=== PATIENT | male | born 1970 | race Caucasian/White ===

== ENCOUNTER 2019-09-16 09:40 | Outpatient (CLI) | payer BC, SELFPAY ==
[2019-09-16 10:13] LABS: Basophils Percent Auto 0.5 % (0.2-1.2); Eosinophils Percent Auto 0.8 % (0-4.4); Hematocrit 45.7 % (42.0-52.0); Hemoglobin 15.9 g/dL (14.0-18.0); Immature Granulocyte Absolute 0.01 K/mm3 (0.00-0.031); Immature Granulocyte Percent A 0.3 % (0-0.5); Lymphocytes Absolute Auto 0.73 K/mm3 (0.9-3.2); Lymphocytes Percent Auto 19.3 % (18.3-44.2); Mean Corpuscular HGB Conc 34.8 g/dl (32-36); Mean Corpuscular Hemoglobin 32.6 pg (26-34); Mean Corpuscular Volume 93.8 fl (80-100); Mean Platelet Volume 11.2 fl (7.4-10.4); Monocytes Absolute Auto 0.4 K/mm3 (0.1-0.6); Monocytes Percent Auto 10.8 % (2.6-8.5); Neutrophils Absolute Auto 2.6 K/mm3 (1.3-6.7); Neutrophils Percent Auto 68.3 % (45.5-73.1); Platelet Count Result 184 k/mm3 (150-375); Red Blood Count 4.87 M/mm3 (4.6-6.20); Red Cell Distribution Width 12.5 % (11.5-14.5); White Blood Count 3.8 K/mm3 (4.5-10.0)
[2019-09-16 10:39] LABS: Alanine Aminotransferase 71 U/L (4-50); Albumin Level 4.7 g/dL (3.5-5.1); Alkaline Phosphatase 35 U/L (38-126); Aspartate Amino Transferase 51 U/L (17-59); Bilirubin,Total 1.1 mg/dL (0.2-1.3); Blood Urea Nitrogen 16 mg/dL (9-20); Calcium 9.5 mg/dL (8.4-10.2); Carbon Dioxide 26 mmol/L (22-30); Chloride 105 mmol/L (98-107); Cholesterol 229 mg/dL (0-200); Estimated Glomerular Filt Rate > 60; Glucose 123 mg/dL (75-110); HDL Direct 46 mg/dL; Potassium 4.4 mmol/L (3.4-5.0); Sodium 139 mmol/L (137-145); Triglycerides 110 mg/dL (<150)
[2019-09-16 10:51] LABS: LDL Cholesterol Direct 156 mg/dL
[2019-09-16 11:07] LABS: Free T4 Free Thyroxine 0.83 ng/mL (0.78-2.19)
[2019-09-16 11:15] LABS: Total Triiodothyronine (T3) 1.05 NG/ML (0.97-1.69)
== END 2019-09-16 09:41 | disposition home or self-care (01) ==
PROVIDERS: PCP Family Medicine; Visit Provider Nurse Practitioner Family
DX: Z00.00 Encounter for general adult medical examination without abnormal findings (principal); Z13.0 Encounter for screening for diseases of the blood and blood-forming organs and certain disorders involving the immune mechanism; Z13.6 Encounter for screening for cardiovascular disorders; Z13.220 Encounter for screening for lipoid disorders; R53.83 Other fatigue; E55.9 Vitamin D deficiency, unspecified
CPT/HCPCS: 36415; 80053; 80061; 82306; 84439; 84443; 84480; 85025

== ENCOUNTER 2020-10-06 11:07 | Outpatient (CLI) | payer BC, SELFPAY ==
[2020-10-06 11:40] LABS: Basophils Percent Auto 0.8 % (0.2-1.2); Eosinophils Percent Auto 0.8 % (0-4.4); Hematocrit 41.7 % (42.0-52.0); Hemoglobin 14.9 g/dL (14.0-18.0); Immature Granulocyte Absolute 0.01 K/mm3 (0.00-0.031); Immature Granulocyte Percent A 0.4 % (0-0.5); Lymphocytes Absolute Auto 0.54 K/mm3 (0.9-3.2); Lymphocytes Percent Auto 22.4 % (18.3-44.2); Mean Corpuscular HGB Conc 35.7 g/dl (32-36); Mean Corpuscular Hemoglobin 33.7 pg (26-34); Mean Corpuscular Volume 94.3 fl (80-100); Mean Platelet Volume 11.1 fl (7.4-10.4); Monocytes Absolute Auto 0.3 K/mm3 (0.1-0.6); Monocytes Percent Auto 11.6 % (2.6-8.5); Neutrophils Absolute Auto 1.5 K/mm3 (1.3-6.7); Platelet Count Result 170 k/mm3 (150-375); Red Blood Count 4.42 M/mm3 (4.6-6.20); White Blood Count 2.4 K/mm3 (4.5-10.0)
[2020-10-06 12:23] LABS: Creatinine Urine 335.6 mg/dL
[2020-10-06 12:26] LABS: MALB Creatinine Ratio 10.3 mg/g (0-30); Microalbumin Urine Random 34.6 mg/L (0-16.7)
[2020-10-06 12:37] LABS: Free T4 Free Thyroxine 0.97 ng/mL (0.78-2.19); Vitamin D 25 Hydroxy 45.7 ng/mL
[2020-10-06 13:20] LABS: Alanine Aminotransferase 76 U/L (4-50); Albumin Level 4.6 g/dL (3.5-5.1); Alkaline Phosphatase 32 U/L (38-126); Anion Gap 9 mmol/L (8-16); Aspartate Amino Transferase 42 U/L (17-59); Bilirubin,Total 0.9 mg/dL (0.2-1.3); Blood Urea Nitrogen 17 mg/dL (9-20); Calcium 9.8 mg/dL (8.4-10.2); Carbon Dioxide 25 mmol/L (22-30); Chloride 106 mmol/L (98-107); Cholesterol 212 mg/dL (0-200); Estimated Glomerular Filt Rate > 60; Glucose 109 mg/dL (75-110); HDL Direct 46 mg/dL; Potassium 4.4 mmol/L (3.4-5.0); Sodium 140 mmol/L (137-145); Triglycerides 117 mg/dL (<150)
[2020-10-06 13:31] LABS: LDL Cholesterol Direct 124 mg/dL
[2020-10-06 13:51] LABS: Total Triiodothyronine (T3) 1.33 NG/ML (0.97-1.69)
== END 2020-10-06 11:08 | disposition home or self-care (01) ==
PROVIDERS: PCP Family Medicine; Visit Provider Nurse Practitioner
DX: Z00.00 Encounter for general adult medical examination without abnormal findings (principal); R03.0 Elevated blood-pressure reading, without diagnosis of hypertension; M54.2 Cervicalgia; E55.9 Vitamin D deficiency, unspecified; R80.9 Proteinuria, unspecified
CPT/HCPCS: 36415; 80053; 80061; 82043; 82306; 84439; 84443; 84480; 85025

== ENCOUNTER 2020-10-19 14:53 | Outpatient (CLI) | payer BC, SELFPAY ==
[2020-10-19 20:25] LABS: Alanine Aminotransferase 51 U/L (4-50); Albumin Level 4.5 g/dL (3.5-5.1); Alkaline Phosphatase 35 U/L (38-126); Anion Gap 9 mmol/L (8-16); Aspartate Amino Transferase 39 U/L (17-59); Bilirubin,Total 0.7 mg/dL (0.2-1.3); Blood Urea Nitrogen 20 mg/dL (9-20); Calcium 9.6 mg/dL (8.4-10.2); Carbon Dioxide 24 mmol/L (22-30); Chloride 105 mmol/L (98-107); Estimated Glomerular Filt Rate > 60; Glucose 153 mg/dL (75-110); Potassium 4.2 mmol/L (3.4-5.0); Sodium 138 mmol/L (137-145)
[2020-10-19 20:56] LABS: Hepatitis B Surface Antigen Negative (Negative)
[2020-10-19 21:02] LABS: HAV RESULT Negative (Negative); Hepatitis B Core IgM Result Negative (Negative)
[2020-10-19 21:14] LABS: Hepatitis C Virus Antibody Negative (Negative)
== END 2020-10-19 14:54 | disposition home or self-care (01) ==
PROVIDERS: PCP Family Medicine; Visit Provider Nurse Practitioner
DX: R74.8 Abnormal levels of other serum enzymes (principal)
CPT/HCPCS: 36415; 80053; 80074

== ENCOUNTER 2021-04-20 11:00 | Outpatient (CLI) | payer BC, SELFPAY ==
[2021-04-20 11:18] LABS: Basophils Percent Auto 1.3 % (0.2-1.2); Eosinophils Percent Auto 1.3 % (0-4.4); Hematocrit 41.5 % (42.0-52.0); Hemoglobin 14.8 g/dL (14.0-18.0); Immature Granulocyte Absolute 0.01 K/mm3 (0.00-0.031); Immature Granulocyte Percent A 0.3 % (0-0.5); Lymphocytes Absolute Auto 0.86 K/mm3 (0.9-3.2); Lymphocytes Percent Auto 27.3 % (18.3-44.2); Mean Corpuscular HGB Conc 35.7 g/dl (32-36); Mean Corpuscular Hemoglobin 35.3 pg (26-34); Mean Platelet Volume 10.6 fl (7.4-10.4); Monocytes Absolute Auto 0.4 K/mm3 (0.1-0.6); Neutrophils Absolute Auto 1.8 K/mm3 (1.3-6.7); Neutrophils Percent Auto 56.8 % (45.5-73.1); Platelet Count Result 179 k/mm3 (150-375); Red Blood Count 4.19 M/mm3 (4.6-6.20); Red Cell Distribution Width 12.7 % (11.5-14.5); White Blood Count 3.2 K/mm3 (4.5-10.0)
[2021-04-20 11:29] LABS: Alanine Aminotransferase 54 U/L (4-50); Albumin Level 4.6 g/dL (3.5-5.1); Alkaline Phosphatase 34 U/L (38-126); Anion Gap 7 mmol/L (8-16); Aspartate Amino Transferase 34 U/L (17-59); Bilirubin,Total 0.8 mg/dL (0.2-1.3); Blood Urea Nitrogen 16 mg/dL (9-20); Calcium 9.3 mg/dL (8.4-10.2); Carbon Dioxide 28 mmol/L (22-30); Chloride 104 mmol/L (98-107); Cholesterol 203 mg/dL (0-200); Estimated Glomerular Filt Rate > 60; Glucose 126 mg/dL (65-110); HDL Direct 51 mg/dL; Potassium 4.4 mmol/L (3.4-5.0); Sodium 139 mmol/L (137-145); Triglycerides 101 mg/dL (<150)
[2021-04-20 11:40] LABS: LDL Cholesterol Direct 123 mg/dL
[2021-04-20 11:59] LABS: Prostate Specific Antigen 0.3 ng/mL (< OR = 4.0); Total Triiodothyronine (T3) 1.06 NG/ML (0.97-1.69)
[2021-04-20 12:22] LABS: Vitamin D 25 Hydroxy 41.5 ng/mL
[2021-04-24 20:35] LABS: Triiodothyronine T3 Free 3.4 pg/mL (2.3-4.2)
== END 2021-04-20 11:01 | disposition home or self-care (01) ==
PROVIDERS: PCP Family Medicine; Visit Provider Family Medicine
DX: E78.5 Hyperlipidemia, unspecified (principal)
CPT/HCPCS: 36415; 80053; 80061; 82306; 84153; 84443; 84480; 84481; 85025; G0103

== ENCOUNTER 2021-10-12 10:56 | Outpatient (CLI) | payer BC, SELFPAY ==
[2021-10-12 11:30] LABS: Basophils Percent Auto 1.1 % (0.2-1.2); Eosinophils Absolute Auto 0.1 K/mm3 (0-0.3); Eosinophils Percent Auto 1.8 % (0-4.4); Hematocrit 44.2 % (42.0-52.0); Hemoglobin 15.8 g/dL (14.0-18.0); Immature Granulocyte Absolute 0.01 K/mm3 (0.00-0.031); Immature Granulocyte Percent A 0.4 % (0-0.5); Lymphocytes Absolute Auto 0.71 K/mm3 (0.9-3.2); Lymphocytes Percent Auto 25.9 % (18.3-44.2); Mean Corpuscular HGB Conc 35.7 g/dl (32-36); Mean Corpuscular Volume 97.8 fl (80-100); Mean Platelet Volume 10.5 fl (7.4-10.4); Monocytes Absolute Auto 0.3 K/mm3 (0.1-0.6); Monocytes Percent Auto 12.4 % (2.6-8.5); Neutrophils Absolute Auto 1.6 K/mm3 (1.3-6.7); Neutrophils Percent Auto 58.4 % (45.5-73.1); Platelet Count Result 191 k/mm3 (150-375); Red Blood Count 4.52 M/mm3 (4.6-6.20); Red Cell Distribution Width 12.4 % (11.5-14.5); White Blood Count 2.7 K/mm3 (4.5-10.0)
[2021-10-12 11:38] LABS: Alanine Aminotransferase 53 U/L (6-50); Albumin Level 4.9 g/dL (3.5-5.1); Alkaline Phosphatase 34 U/L (38-126); Anion Gap 7 mmol/L (8-16); Aspartate Amino Transferase 34 U/L (17-59); Bilirubin,Total 0.8 mg/dL (0.2-1.3); Blood Urea Nitrogen 15 mg/dL (9-20); Calcium 9.2 mg/dL (8.4-10.2); Carbon Dioxide 30 mmol/L (22-30); Chloride 105 mmol/L (98-107); Cholesterol 220 mg/dL (0-200); Estimated Glomerular Filt Rate > 60; Glucose 124 mg/dL (65-110); HDL Direct 50 mg/dL; Potassium 4.6 mmol/L (3.4-5.0); Sodium 142 mmol/L (137-145); Triglycerides 94 mg/dL (<150)
[2021-10-12 11:49] LABS: LDL Cholesterol Direct 127 mg/dL
[2021-10-12 12:05] LABS: Free T4 Free Thyroxine 0.92 ng/mL (0.78-2.19)
[2021-10-12 12:07] LABS: Prostate Specific Antigen 0.3 ng/mL (< OR = 4.0); Total Triiodothyronine (T3) 1.05 NG/ML (0.97-1.69)
[2021-10-15 11:13] LABS: Sex Hormone Binding Globulin 42 nmol/L (10-50)
[2021-10-16 17:33] LABS: Testosterone Free 82.9 pg/mL (35.0-155.0); Testosterone Total 448 ng/dL (250-1100)
[2021-10-16 19:36] LABS: FSH 4.9 mIU/mL (1.6-8.0); LH 6.4 mIU/mL (1.5-9.3); Prolactin 9.3 ng/mL (***)
== END 2021-10-12 10:57 | disposition home or self-care (01) ==
LOC: ANHLAB 10:58
PROVIDERS: PCP Family Medicine; Visit Provider Family Medicine
DX: I10 Essential (primary) hypertension (principal); R53.83 Other fatigue; E78.5 Hyperlipidemia, unspecified; R53.1 Weakness; E55.9 Vitamin D deficiency, unspecified; Z12.5 Encounter for screening for malignant neoplasm of prostate
CPT/HCPCS: 36415; 80053; 80061; 82306; 83001; 83002; 84146; 84153; 84270; 84402; 84403; 84439; 84443; 84480; 85025; G0103

== ENCOUNTER 2022-11-19 16:49 | Outpatient (CLI) | payer BC, SELFPAY ==
--- NOTE | ~2022-11-19 | XR_ITS ---
Thoracic spine: Clinical Indication: Back pain AP and lateral views were performed. No fracture is seen. There is normal alignment of the vertebrae. The intervertebral disc spaces appe ar normal. Paravertebral soft tissues appear normal. Impression: No significant abnormalities noted. Reviewed, dictated and finalized at [facility]. Impression: No significant abnormalities noted.
--- NOTE | ~2022-11-19 | XR_ITS ---
Cervical Spine: AP, lateral, open-mouth views Clinical History: Pain Findings: The normal lordotic curve is maintained. The vertebral bodies and posterior elements appea r intact. The intervertebral disc spaces are well maintained. Pre-vertebral soft tissues are unremar kable. Impression: No significant abnormality is seen. Reviewed, dictated and finalized at [facility]. Impression: No significant abnormality is seen.
== END 2022-11-19 16:50 | disposition home or self-care (01) ==
PROVIDERS: PCP Family Medicine; Visit Provider Nurse Practitioner Adult Health
DX: M54.2 Cervicalgia (principal); M54.6 Pain in thoracic spine
CPT/HCPCS: 72050; 72070

== ENCOUNTER 2023-08-31 17:40 | Emergency (ER) | payer BC, SELFPAY ==
[2023-08-31 17:51] VITALS: BP 151/84; PULSE 85; RESP 18; TEMP 36.4; O2SAT 100
--- NOTE | 2023-08-31 18:09 | ED.EYEPROB ---
HPI - Eye Problem General Chief complaint: Eye Problems Stated complaint: rt eye pain Time Seen by Provider: 08/31/23 18:10 Source: patient Mode of arrival: ambulatory Limitations: no limitations History of Present Illness HPI Narrative: 53-year-old male presented for complaint of right eye pain since yesterday. He states the eye was ?irritated? yesterday after yard work but denies injury or foreign body. States he woke this morning with more pain, and has had clear tearing throughout the day. Endorses some light sensitivity. Was able to work today. Denies vision changes, foreign body sensation, purulent drainage, itching or swelling. Does not wear contact lenses. Attempted to flush with a bottle of water today. MD chief complaint: eye pain Related Data Home Medications Medication Instructions Recorded Confirmed azathioprine 50 mg tablet mg 08/31/23 oxycodone-acetaminophen 10 mg-325 tablet 08/31/23 mg tablet Allergies Allergy/AdvReac Type Severity Reaction Status Date / Time morphine Allergy Severe CHEST PAIN Verified 08/31/23 18:10 AND BURNING SENSATION OF CHEST NSAIDS (Non-Steroidal AdvReac Other Verified 08/31/23 18:10 Anti-Inflamma Review of Systems Review of Systems: CONSTITUTIONAL: Denies body aches, fever, chills EYES:Endorses pain, photophobia Denies visual changes swelling, redness and fb sensation ENT: Denies rhinorrhea, congestion, sore throat, or otalgia. CARDIOVASCULAR: Denies chest pain, palpitations RESPIRATORY: Denies cough or dyspnea. SKIN: Denies rash, itching, or wounds. MUSCULOSKELETAL: Denies back pain, joint pain, or myalgia. NEUROLOGIC: Denies headache. All systems reviewed & are unremarkable except as noted in HPI and below [facility] Past Medical History Medical History (Updated 08/31/23 @ 18:31 by Cori Del Rio APRN) Ulcerative colitis Comments At time of signature, I have reviewed and agree with nursing past medical, surgical, social and family history unless otherwise noted. Please see nursing chart for further information. There is no relevant family history pertinent to the presenting complaint Exam Narrative: GENERAL: Well-appearing HEAD: Normocephalic, atraumatic. EYES: Right conjunctival injection, frequent tearing.Shabazz lamp exam shows corneal abrasion at 8o'clock position over iris. No eye lid swelling or purulent drainage. PERRLA EOMI. Lid eversion shows no FB. ENT: Mucous membranes pink and moist. No rhinorrhea. SKIN: Warm, dry, no rash. Normal skin turgor. NEURO: No focal deficits. Alert and oriented x3 PSYCH: Normal affect. Eyes: Eyes/upper lids images: 1. area of corneal abrasion Course Course Emergency Course: Patient is aware of diagnosis, understands and agrees to treatment plan. Anticipatory guidance given. Patient agrees to follow-up as directed and is aware of reasons to seek care at the emergency department. Portions of this record may have been created with voice recognition software Level of Care: Express Care Visit Vital Signs Vital signs: Vital Signs Temperature 97.5 F L 08/31/23 17:51 Pulse Rate 85 08/31/23 17:51 Respiratory Rate 18 08/31/23 17:51 Blood Pressure 151/84 H 08/31/23 17:51 Pulse Oximetry 100 08/31/23 17:51 Oxygen Delivery Room Air 08/31/23 17:51 Temperature 97.5 F L 08/31/23 17:51 Pulse Rate 85 08/31/23 17:51 Respiratory Rate 18 08/31/23 17:51 Blood Pressure 151/84 H 08/31/23 17:51 Pulse Oximetry 100 08/31/23 17:51 Oxygen Delivery Room Air 08/31/23 17:51 Procedures FB Removal Eye Foreign Body #1: Location: eye (R) Topical anesthetic used: tetracaine Evidence of corneal penetration: Yes (corneal abrasion) Procedure performed under: other (shabazz lamp) Patient tolerated procedure: well and no complications Foreign Body Removal Narrative: Right Eye was anesthetized with 1 drop of
[2023-08-31] MEDS: FLUORESCEIN SOD 1 MG/STRIP AFFCTD EYE (18:20)
[2023-08-31] MEDS: DACRIOSE EYE IRRIGATION 118 ML BOTTLE RIGHT EYE (18:20)
[2023-08-31] MEDS: TETRACAINE HCL 0.5% OPHTH SOLN 4 ML BTL 1 DROP AFFCTD EYE (18:20)
== END 2023-08-31 18:38 | disposition home or self-care (01) ==
PROVIDERS: Emergency Provider Nurse Practitioner Family; PCP Nurse Practitioner Adult Health
DX: S05.01XA Injury of conjunctiva and corneal abrasion without foreign body, right eye, initial encounter (principal); X58.XXXA Exposure to other specified factors, initial encounter
CPT/HCPCS: 99213; A9270; G0463

== ENCOUNTER 2023-09-03 15:33 | Outpatient (CLI) | payer BC, SELFPAY ==
--- NOTE | ~2023-09-03 | XR_ITS ---
EXAMINATION: XR knee RT min 4V DATE: 09/03/2023 15:57 INDICATION: Right knee pain. TECHNIQUE: 4 views of right knee including standing views were obtained. COMPARISON: None. FINDINGS: Bone alignment is normal. No fracture. There is mild tricompartmental osteoarthritis. No kn ee joint effusion. IMPRESSION: 1. Mild right knee osteoarthritis. Reviewed, dictated and finalized at location A.
== END 2023-09-03 15:34 | disposition home or self-care (01) ==
LOC: ANHIMG 15:35
PROVIDERS: PCP Nurse Practitioner Adult Health; Visit Provider Nurse Practitioner Adult Health
DX: M17.11 Unilateral primary osteoarthritis, right knee (principal)
CPT/HCPCS: 73564

== ENCOUNTER 2024-04-30 09:22 | Outpatient (CLI) | payer BC, SELFPAY ==
[2024-04-30 10:24] LABS: Basophils Percent Auto 0.7 % (0.2-1.2); Eosinophils Absolute Auto 0.1 K/mm3 (0-0.3); Eosinophils Percent Auto 1.7 % (0-4.4); Hematocrit 44.3 % (42.0-52.0); Hemoglobin 15.7 g/dL (14.0-18.0); Immature Granulocyte Absolute 0.01 K/mm3 (0.00-0.031); Immature Granulocyte Percent A 0.3 % (0-0.5); Lymphocytes Percent Auto 23.2 % (18.3-44.2); Mean Corpuscular HGB Conc 35.4 g/dl (32-36); Mean Corpuscular Hemoglobin 34.4 pg (26-34); Mean Corpuscular Volume 97.1 fl (80-100); Mean Platelet Volume 11.3 fl (7.4-10.4); Monocytes Absolute Auto 0.4 K/mm3 (0.1-0.6); Monocytes Percent Auto 12.6 % (2.6-8.5); Neutrophils Absolute Auto 1.9 K/mm3 (1.3-6.7); Neutrophils Percent Auto 61.5 % (45.5-73.1); Platelet Count Result 172 k/mm3 (150-375); Red Blood Count 4.56 M/mm3 (4.6-6.20); Red Cell Distribution Width 12.5 % (11.5-14.5)
[2024-04-30 10:39] LABS: Alanine Aminotransferase 38 U/L (6-50); Albumin Level 4.6 g/dL (3.5-5.1); Alkaline Phosphatase 37 U/L (38-126); Anion Gap 6 mmol/L (4-12); Aspartate Amino Transferase 30 U/L (17-59); Bilirubin,Total 0.8 mg/dL (0.2-1.3); Blood Urea Nitrogen 18 mg/dL (9-20); Calcium 9.5 mg/dL (8.4-10.2); Carbon Dioxide 29 mmol/L (22-30); Chloride 104 mmol/L (98-107); Cholesterol 191 mg/dL (0-200); Estimated Glomerular Filt Rate > 60; Glucose 133 mg/dL (65-110); HDL Direct 54 mg/dL; Potassium 4.5 mmol/L (3.4-5.0); Sodium 139 mmol/L (137-145); Triglycerides 121 mg/dL (<150)
[2024-04-30 10:50] LABS: LDL Cholesterol Direct 116 mg/dL
[2024-04-30 11:01] LABS: Free T4 Free Thyroxine 0.88 ng/dL (0.78-2.19); Vitamin D 25 Hydroxy 35.3 ng/mL
[2024-04-30 11:08] LABS: Prostate Specific Antigen 0.4 ng/mL (< OR = 4.0)
--- OUTSIDE RECORDS SUMMARY | 2024-05-05 08:43 | XMS_ITS | Encounter Summary ---
Author Organization [facility] Address [address] [place] [address]. [place] [address] [place] [address] Care Team Providers Care Industrial Design Engineer Name Role Phone Hardeep Agarwal NP Primary Care Provide r Brenda Gutierrez MD Primary Care Provider [phone] Jalil Patrick Primary Care Provider [phone] Encounter Details Date Type Department Care Team (Late st Contact Info) Description 10/22/2023 Imbera Electronicst Message Enc [facility] Family & Internal Medicine [facility] [address] [place] [address] Hardeep Agarwal, JUSTIN [address] [facility] [place] [address] Meds Social History Tobacco Use Types Packs/Day Years Used Date Smoking Tobacco: Former Cigarettes 0.5 10 0 04/13/2003 - 04/13/2013 Smokeless Tobacco: Never Alcohol Use Standard Drinks/Week Comments Yes 10 (1 standard drink = 0.6 oz pu re alcohol) PHQ-2 Answer Date Recorded Patient Health Questionnaire-2 Score 0 05/01/2023 Sex and Gender Information Value Date Recorded Sex Assigned at Not on file Legal Sex Male 7:19 PM CDT Gender Identity Not on file Sexual Orientation Not on file documented as of this encounter Progress Notes * Sun Craft LPN - 10/27/2023 3:09 PM CDT Pt called said that the refill he wanted was already taken take of edda Moyer documented in this encounter Plan of Treatment Upcoming Encounters Date Type Department Care Team (Late st Contact Info) Description 05/16/2024 3:40 PM STEAM FLATTENER Office Visit [facility] Family & Internal Medicine [facility] [address] [place] [address] [place] [address] [place] [address] documented as of this encounter Visit Diagnoses Not on filedocumented in this encounter Care Teams Industrial Design Engineer Relationship Specialty Start Date End Date Hardeep Agarwal NP PCP - General NURSE PRACTITIONER ADULT HEALTH 04/22/23 11/02/23 [place] [address] [id number] PCP - General INTERNAL MEDICINE 11/03/23 11/10/23 [place] [address] [place] [address] PCP - General Physician Electronic Induction Hardener Medical 11/11/23 documented as of this encounter
--- OUTSIDE RECORDS SUMMARY | 2024-05-05 08:43 | XMS_ITS | Encounter Summary ---
Author Organization [facility] Address [address] [place] [address]. [place] [address] [place] [address] Care Team Providers Care Manufacturing Chief Engineer Name Role Phone Hardeep Agarwal NP Primary Care Provide r Brenda Gutierrez MD Primary Care Provider [phone] Jalil Patrick Primary Care Provider [phone] Encounter Details Date Type Department Care Team (Late st Contact Info) Description 10/29/2023 Grassroots Business Fundt Message Enc [facility] [address] [place] [address] [facility] Provider reschedule appointment Social History Tobacco Use Types Packs/Day Years [...] on file documented as of this encounter Plan of Treatment Upcoming Encounters Date Type Department Care Team (Late st Contact Info) Description 05/16/2024 3:40 PM FURNACE COMBUSTION ANALYST Office Visit [facility] [address] [place] [address] [place] [address] [place] [address] documented as of this encounter Visit Diagnoses Not on filedocumented in this encounter Care Teams Manufacturing Chief Engineer Relationship Specialty Start Date End Date Hardeep Agarwal NP PCP - General NURSE PRACTITIONER ADULT HEALTH 04/22/23 11/02/23 [place] [address] [address] [address] PCP - General INTERNAL MEDICINE 11/03/23 11/10/23 [place] [address] [facility] [place] [address] PCP - General Physician Ems Director Medical 11/11/23 documented as of this encounter
--- OUTSIDE RECORDS SUMMARY | 2024-05-05 08:43 | XMS_ITS | Encounter Summary ---
Author Organization [facility] Address [address] [place] [address]. [place] [address] [place] [address] Care Team Providers Care Farm Rancher Name Role Phone Hardeep Agarwal NP Primary Care Provide r Brenda Gutierrez MD Primary Care Provider [phone] Jalil Patrick Primary Care Provider [phone] Encounter Details Date Type Department Care Team (Late st Contact Info) Description 06/11/2023 NEWLINE SOFTWAREt Message Enc [facility] Family & Internal Medicine [facility] [address] [place] [address] Hardeep Agarwal, JUSTIN [address] [facility] [place] [address] Meds Social History Tobacco Use [...] as of this encounter Progress Notes * Letty Cavanaugh RN - 06/11/2023 10:55 AM CST Ok for refills? RIALS PLANNER documented in this encounter Plan of Treatment Upcoming Encounters Date Type Department Care Team (Late st Contact Info) Description 05/16/2024 3:40 PM MATERIALS PLANNER Office Visit [facility] Family & Internal Medicine [facility] [address] [place] [address] [place] [address] [place] [address] documented as of this encounter Visit Diagnoses Not on filedocumented in this encounter Care Teams Farm Rancher Relationship Specialty Start Date End Date Hardeep Agarwal NP PCP - General NURSE PRACTITIONER ADULT HEALTH 04/22/23 11/02/23 [place] [address] [address] PCP - General INTERNAL MEDICINE 11/03/23 11/10/23 [place] [address] [place] [address] PCP - General Physician Hand Method Lasting Machine Operator Medical 11/11/23 documented as of this encounter
--- OUTSIDE RECORDS SUMMARY | 2024-05-05 08:43 | XMS_ITS | Clinical Summary ---
Author Organization [facility] Address [address] [place] [address]. [place] [address] [place] [address] Care Team Providers Care [employer] Name Role Phone Jalil Patrick Primary Care Provider [phone] Allergies Active Allergy Reactions Criticality Noted Date Comments Morphine Chest pressure 05/01/2023 Nsaids GI Bleed 05/01/2023 Medications azaTHIOprine (IMURAN) 50 MG tabletIndications:I rritable bowel syndrome with diarrhea,Crohn's disease without complication, unspecified gastrointestinal tract location ([facility]/HCC [facility]) TAKE 3 TABLETS DAILY 270 tablet 3 10/18/19 24 Active Additional Information Patient taking differently:150 mg Oral Daily,Indications: ACCERDO ONLY, Reported on 02/10/2024 mesalamine EC (LIALDA) 1.2 g Tab EC tabletIndications:E XPRESS SCRIPTS ONLY Take 2 tablets (2.4 g total) by mouth 2 (two) times a day. Indications: EXPRESS SCRIPTS ONLY 360 tablet 3 02/10/20 24 025 Active HYDROcodone-acetami nophen (NORCO) 10-325 MG tabletIndications:C hronic Pain Take 1 tablet by mouth every 6 (six) hours as needed for Pain. Indications: Chronic Pain 120 tablet 04/22/19 25 025 Active HYDROcodone-acetami nophen (NORCO) 10-325 MG tabletIndications:C hronic Pain Take 1 tablet by mouth every 6 (six) hours as needed for Pain. Indications: Chronic Pain 120 tablet 03/18/20 24 025 Discontin ued(Reord er) Active Problems Problem Noted Date Diagnosed Date Primary hypertension 05/01/2023 Cervical spondylosis with myelopathy and radicul opathy 05/01/2023 Ulcerative colitis without complications ([facility]) 05/01/2023 Encounters Date Type Department Care Team Description 02/10/2024 4:20 PM CDT Office Visit [facility] Family & Internal [facility] [address] [place] [address] Jalil Patrick PA Follow Up (3 month follow up); Hypertension; Refill Request 02/10/2024 Travel from Last 3 Months Social History Tobacco Use Types Packs/Day Years Used Date Smoking Tobacco: Former Cigarettes 0.5 10 0 04/13/2003 - 04/13/2013 Smokeless Tobacco: Never Tobacco Cessation:Counseling Given: Yes Alcohol Use Standard Drinks/Week Comments Yes 10 (1 standard drink = 0.6 oz pu re alcohol) PHQ-2 Answer Date Recorded Patient Health Questionnaire-2 Score 0 05/01/2023 Sex and Gender Information Value Date Recorded Sex Assigned at Not on file Legal Sex Male 7:19 PM CDT Gender Identity Not on file Sexual Orientation Not on file Last Filed Vital Signs Vital Sign Reading Time Taken Comments Blood Pressure 127/82 02/10/2024 4:05 PM CDT Pulse 75 02/10/2024 4:05 PM CDT Temperature 37 ??C (98.6 ??F) 02/10/2024 4:05 PM CDT Respiratory Rate 18 02/10/2024 4:05 PM CDT Oxygen Saturation 99% 02/10/2024 4:05 PM CDT Inhaled Oxygen Concentration - - Weight 93 kg (205 lb) 02/10/2024 4:05 PM CDT Height 172.7 cm (5' 8 ) 02/10/2024 4:05 PM CDT Body Mass Index 31.17 02/10/2024 4:05 PM CDT Plan of Treatment Upcoming Encounters Date Type Department Care Team (Late st Contact Info) Description 05/16/2024 3:40 PM PARTS MANAGER Office Visit [facility] Family & Internal [facility] [address] [place] [address] [place] [address] [place] [address] Health Maintenance Due Date Last Done Comments Colorectal Cancer Screening Colonoscopy (10 Years) 1972 Annual Physical 1975 Pneumococcal Vaccine: Pediatrics (0 to 5 Years) and At-Risk Patients (6 to 64 Years) (1 of 2 - PCV) 1978 DTaP, Tdap and Td Vaccines ( 1 - Tdap) 1991 Hepatitis B Vaccines (1 of 3 - 19+ 3-dose series) 1991 Zoster Vaccines (1 of 2) 1991 COVID-19 Vaccine (3 - Pfizer risk series) 09/02/2020 08/05/2020, 07/14/2020 Influenza Adult (#1) 2024 PHQ-2 (Physician [place]) 05/01/2024 05/01/2023 Hepatitis C Completed 10/19/2020 Meningococcal B Vaccine Aged Out No l onger eligible based on patient's age to complete this topic Meningococcal Vaccine Aged Out No miguel raúl eligible based on patient's age to complete this topic RSV Immunizations Under 20 Months Aged Out No longer eligible b ased on patient's age to complete this topic Procedures Procedure Name Priority Date/Time Associated Diagnosis Comments HEP C SCANNED ORDERS Routine 10/19/2020 from Last 3 Months or Most Recently Relevant to Health Maintenance Results * HEP C SCANNED ORDERS (10/19/2020) us Doc [facility] Scanned SCANNING Final Resu lt [facility] from Last 3 Months or Most Recently Relevant to Health Maintenance Insurance [facility] Care Teams [employer] Relationship Specialty [place] [address] [place] [address] PCP - General Physician Tunnel Heading Supervisor Medical 11/11/23
--- OUTSIDE RECORDS SUMMARY | 2024-05-05 08:43 | XMS_ITS | Encounter Summary ---
Author Organization [facility] Address [address] [place] [address]. [place] [address] [place] [address] Care Team Providers Care Care Management Associate Name Role Phone Hardeep Agarwal NP Primary Care Provide r Brenda Gutierrez MD Primary Care Provider [phone] Jalil Patrick Primary Care Provider [phone] Encounter Details Date Type Department Care Team (Late st Contact Info) Description 09/04/2023 MyChart Message Enc [facility] Family & Internal Medicine [facility] [address] [place] [address] Hardeep Agarwal, JUSTIN [address] [facility] [place] [address] Xray right knee Social History Tobacco Use Types Packs/Day Years [...] st Contact Info) Description 05/16/2024 3:40 PM HOT SEALING MACHINE OPERATOR Office Visit [facility] Family & Internal Medicine [facility] [address] [place] [address] [place] [address] [place] [address] documented as of this encounter Visit Diagnoses Not on filedocumented in this encounter Care Teams Care Management Associate Relationship Specialty Start Date End Date Hardeep Agarwal NP PCP - General NURSE PRACTITIONER ADULT HEALTH 04/22/23 11/02/23 [place] [address] [address] PCP - General INTERNAL MEDICINE 11/03/23 11/10/23 [place] [address] [place] [address] PCP - General Physician Padded Products Finisher Medical 11/11/23 documented as of this encounter
== END 2024-04-30 09:23 | disposition home or self-care (01) ==
PROVIDERS: PCP Physician Assistant; Visit Provider Physician Assistant
DX: E55.9 Vitamin D deficiency, unspecified (principal); K51.90 Ulcerative colitis, unspecified, without complications; Z12.5 Encounter for screening for malignant neoplasm of prostate; Z13.0 Encounter for screening for diseases of the blood and blood-forming organs and certain disorders involving the immune mechanism; Z13.228 Encounter for screening for other metabolic disorders; Z13.29 Encounter for screening for other suspected endocrine disorder
CPT/HCPCS: 36415; 80053; 80061; 82306; 83525; 84153; 84439; 84443; 85025; G0103

== ENCOUNTER 2024-11-05 13:05 | Emergency (ER) | payer BC, SELFPAY ==
--- NOTE | ~2024-11-05 | XR_ITS ---
HISTORY: LOWER LEG PAIN AFTER FALL TODAY COMPARISON: None TECHNIQUE: 2 views of the tibia and fibula were performed FINDINGS: No acute or subacute fracture. Joint spaces are preserved and alignment is maintained. Within the soft tissues of the anterior lower leg approximately 11.4 cm caudal to the level of the ti bial plateau are multiple subcentimeter radiopaque foreign bodies, possibly from patient's injury. Age-appropriate mineralization. IMPRESSION: Radiopaque foreign bodies within the anterior left lower leg, as detailed above. No acute fracture. Reviewed, dictated and finalized at location A. IMPRESSION: Radiopaque foreign bodies within the anterior left lower leg, as detailed above . No acute fracture.
--- OUTSIDE RECORDS SUMMARY | 2024-11-05 13:07 | XMS_ITS | Clinical Summary ---
Author Organization [facility] Address [address] [place] [address] Care Team Providers Care Horse Groomer Name Role Phone Jalil Patrick Primary Care Provider [phone] Allergies Active Allergy Reactions Criticality Noted Date Comments Morphine Chest pressure 05/01/2023 Nsaids GI Bleed 05/01/2023 Medications mesalamine EC (LIALDA) 1.2 g Tab EC tabletIndications:EX PRESS SCRIPTS ONLY Take 2 tablets (2.4 g total) by mouth 2 (two) times a day. Indications: EXPRESS SCRIPTS ONLY 360 tablet 3 02/10/20 24 025 Active clobetasol (TEMOVATE) 0.05 % creamIndications:Dys hidrotic eczema Apply topically 2 (two) times daily. 45 g 1 05/16/19 25 Active azaTHIOprine (IMURAN) 50 MG tabletIndications:Ir ritable bowel syndrome with diarrhea,Crohn's disease without complication, unspecified gastrointestinal tract location (CMS/[facility]CC [facility]) Take 3 tablets (150 mg total) by mouth daily. 270 tablet 05/31/19 25 Active HYDROcodone-acetamin ophen (NORCO) 10-325 MG tabletIndications:Ch ronic Pain Take 1 tablet by mouth every 6 (six) hours as needed for Pain. Indications: Chronic Pain 120 tablet 10/22/19 25 025 Active HYDROcodone-acetamin ophen (NORCO) 10-325 MG tabletIndications:Ch ronic Pain Take 1 tablet by mouth every 6 (six) hours as needed for Pain. Indications: Chronic Pain 120 tablet 09/20/19 25 025 Discontin ued(Reord er) Active Problems Problem Noted Date Diagnosed Date Primary hypertension 05/01/2023 Cervical spondylosis with myelopathy and radicul opathy 05/01/2023 Ulcerative colitis without complications (CMS/HC C [facility]) 05/01/2023 Encounters Date Type Department Care Team Description 08/21/2024 Scan MG HEALTH INFO SRVCS Scanned, Doc Med Group 08/15/2024 Results Follow-Up [facility] Family & Internal Medicine [facility] [address] [place] [address] Jalil Patrick PA XR FOOT RT 3V 08/12/2024 4:33 PM CDT - 08/12/2024 11:59 PM CDT Hospital Encounter [facility] [id number] [place] [address] Jalil Patrick PA Discharge Disposition: Home or Self Care (Routine Discharge) 08/12/2024 4:00 PM CDT Office Visit [facility] Family & Internal [facility] [address] [place] [phone] Jalil Patrick PA Follow Up (3 mo f/u) 08/12/2024 Travel from Last 3 Months Social History Tobacco Use Types Packs/Day Years Used Date Smoking Tobacco: Former Cigarettes 0.5 10 0 04/13/2003 - 10/17/2013 Smokeless Tobacco: Never Tobacco Cessation:Counseling Given: No Alcohol Use Standard Drinks/Week Comments Yes 10 (1 standard drink = 0.6 oz pu re alcohol) PHQ-2 Answer Date Recorded Patient Health Questionnaire-2 Score 0 05/16/2024 Sex and Gender Information Value Date Recorded Sex Assigned at Male 08/12/2024 4:05 PM CDT Legal Sex Male 7:19 PM CDT Gender Identity Male 08/12/2024 4:05 PM CDT Sexual Orientation Not on file Last Filed Vital Signs Vital Sign Reading Time Taken Comments Blood Pressure 133/87 08/12/2024 3:59 PM CDT Pulse 64 08/12/2024 3:59 PM CDT Temperature 36.6 C (97.8 F) 08/12/2024 3:59 PM CDT Respiratory Rate 16 08/12/2024 3:59 PM CDT Oxygen Saturation 97% 08/12/2024 3:59 PM CDT Inhaled Oxygen Concentration - - Weight 96.2 kg (212 lb) 08/12/2024 3:59 PM CDT Height 172.7 cm (5' 8) 08/12/2024 3:59 PM CDT Body Mass Index 32.23 08/12/2024 3:59 PM CDT Plan of Treatment Upcoming Encounters Date Type Department Care Team (Late st Contact Info) Description 11/11/2024 4:00 PM CDT Office Visit [facility] Group Family & Internal Medicine - [place] [address] [place] [address] [place] [address] [place] [address] Health Maintenance Due Date Last Done Comments Colorectal Cancer Screening Colonoscopy (10 Years) 1972 Annual Physical 1975 DTaP, Tdap and Td Vaccines ( 1 - Tdap) 1991 Hepatitis B Vaccines (1 of 3 - 19+ 3-dose series) 1991 Pneumococcal Vaccine: 50+ Years (1 of 2 - PCV) 1991 Zoster Vaccines (1 of 2) 1991 COVID-19 Vaccine (3 - Pfizer risk series) 09/02/2020 08/05/2020, 07/14/2020 Hepatitis C Completed 10/19/2020 PHQ-2 (Physician [place]) Completed 05/16/2024 Meningococcal B Vaccine Aged Out No l onger eligible based on patient's age to complete this topic Meningococcal Vaccine Aged Out No miguel raúl eligible based on patient's age to complete this topic RSV Immunizations Under 20 Months Aged Out No longer eligible b ased on patient's age to complete this topic Procedures Procedure Name Priority Date/Time Associated Diagnosis Comments XR FOOT RT 3V Routine 08/12/2024 4:43 PM CDT Chronic pain of right heel HEP C SCANNED ORDERS Routine 10/19/2020 from Last 3 Months or Most Recently Relevant to Health Maintenance Results * XR FOOT RT 3V (08/12/2024 4:43 PM CDT) Anatomical Region Laterality Modality Foot Radiographic Marina ging 08/13/2024 7:37 AM CDT Impressions 08/13/2024 7:38 AM CDT IMPRESSION: 1. Plantar calcaneal enthesophyte. 2. Mild hallux valgus. Ordered By: JALIL PATRICK Interpreted By: Lanre Beltre MD, 08/13/2024 7:37 AM Narrative 08/13/2024 7:38 AM CDT [address] [place] [address] Examination: X-ray RIGHT foot 3 views Exam time: 08/12/2024 Clinical history: HEEL PAIN X OVER A YEAR Comparison: None Technique: AP, oblique and lateral views of the RIGHT foot were obtained. Findings: No evidence of fracture, dislocation or gross bone destruction. No erosive arthritic change. Plantar calcaneal enthesophyte. Mild hallux valgus. Procedure Note Lanre Beltre MD - 08/13/[address] [place] [address] Examination: X-ray RIGHT foot 3 views Exam time: 08/12/2024 Clinical history: HEEL PAIN X OVER A YEAR Comparison: None Technique: AP, oblique and lateral views of the RIGHT foot wereobtained. Findings: No evidence of fracture, dislocation or gross bone destruction.No erosive arthritic change. Plantar calcaneal enthesophyte. Mild halluxvalgus. IMPRESSION: 1. Plantar calcaneal enthesophyte. 2. Mild hallux valgus. Ordered By: JALIL PATRICK Interpreted By: Lanre Beltre MD, 08/13/2024 7:37 AM [facility] Final Result * HEP C SCANNED ORDERS (10/19/2020) 10/19/2020 us Doc Med Group Scanned SCANNING Edited Res ult - Final [facility] ON[facility] from Last 3 Months or Most Recently Relevant to Health Maintenance Insurance [facility] Care Teams Horse Groomer Relationship Specialty [place] [address] [place] [address] PCP - General Physician Stenographer Secretary Medical 11/11/23
--- OUTSIDE RECORDS SUMMARY | 2024-11-05 13:07 | XMS_ITS | Encounter Summary ---
Author Organization [facility] Address [address] [place] [address] Care Team Providers Care Wet Suit Gluer Name Role Phone Hardeep Agarwal NP Primary Care Provide r Brenda Gutierrez MD Primary Care Provider [phone] Jalil Patrick Primary Care Provider Encounter Details Date Type Department Care Team (Late st Contact Info) Description 06/11/2023 [employer] Message Enc [facility] Medical Group Family & Internal Medicine [address] [address] Hardeep Agarwal, JUSTIN [address] [facility] [place] [address] Meds Social History Tobacco Use [...] PM CDT Sexual Orientation Not on file documented as of this encounter Progress Notes * Letty Cavanaugh RN - 06/11/2023 10:55 AM CST Ok for refills? N LABEL DESIGNER documented in this encounter Plan of Treatment Upcoming Encounters Date Type Department Care Team (Late st Contact Info) Description 11/11/2024 4:00 PM CDT Office Visit [facility] Medical Group Family & Internal Medicine [facility] [address] [place] [address] [place] [address] [place] [address] documented as of this encounter Visit Diagnoses Not on filedocumented in this encounter Care Teams Wet Suit Gluer Relationship Specialty Start Date End Date Hardeep Agarwal NP PCP - General NURSE PRACTITIONER ADULT HEALTH 04/22/23 11/02/23 [place] [address] [id number] PCP - General INTERNAL MEDICINE 11/03/23 11/10/23 [place] [address] [place] [address] PCP - General Physician Heat Treating Furnace Tender Medical 11/11/23 documented as of this encounter
--- OUTSIDE RECORDS SUMMARY | 2024-11-05 13:07 | XMS_ITS | Encounter Summary ---
Author Organization [facility] Address [address] [place] [address] Care Team Providers Care Power Plant Installer Name Role Phone Hardeep Agarwal NP Primary Care Provide r Brenda Gutierrez MD Primary Care Provider [phone] Jalil Patrick Primary Care Provider [phone] Encounter Details Date Type Department Care Team (Late st Contact Info) Description 09/04/2023 MyChart Message Enc [facility] Medical Group Family & Internal Medicine [address] [address] Hardeep Agarwal, JUSTIN [address] [facility] [place] [address] Xray right knee Social History [...] Description 11/11/2024 4:00 PM CDT Office Visit [facility] Medical Group Family & Internal Medicine - [place] [address] [place] [address] [place] [address] [place] [address] documented as of this encounter Visit Diagnoses Not on filedocumented in this encounter Care Teams Power Plant Installer Relationship Specialty Start Date End Date Hardeep Agarwal NP PCP - General NURSE PRACTITIONER ADULT HEALTH 04/22/23 11/02/23 [place] [address] [id number] PCP - General INTERNAL MEDICINE 11/03/23 11/10/23 [place] [address] [place] [address] PCP - General Physician Highway Landscape Architect Medical 11/11/23 documented as of this encounter
--- OUTSIDE RECORDS SUMMARY | 2024-11-05 13:07 | XMS_ITS | Encounter Summary ---
Author Organization [facility] Address [address] [place] [address] Care Team Providers Care Hairspring Cutter Name Role Phone Hardeep Agarwal NP Primary Care Provide r Brenda Gutierrez MD Primary Care Provider [phone] Jalil Patrick Primary Care Provider Encounter Details Date Type Department Care Team (Late st Contact Info) Description 10/22/2023 [employer] Message Enc [facility] Medical Group Family & Internal Medicine [address] [address] Hardeep Agarwal, JUSTIN [address] [place] [address] Meds Social History Tobacco Use Types [...] Description 11/11/2024 4:00 PM CDT Office Visit [facility] Medical Group Family & Internal Medicine [facility] [address] [place] [address] [place] [address] [place] [address] documented as of this encounter Visit Diagnoses Not on filedocumented in this encounter Care Teams Hairspring Cutter Relationship Specialty Start Date End Date Hardeep Agarwal NP PCP - General NURSE PRACTITIONER ADULT HEALTH 04/22/23 11/02/23 [place] [address] [id number] PCP - General INTERNAL MEDICINE 11/03/23 11/10/23 [place] [address] [place] [address] PCP - General Physician Blank Driller Medical 11/11/23 documented as of this encounter
--- OUTSIDE RECORDS SUMMARY | 2024-11-05 13:07 | XMS_ITS | Encounter Summary ---
Author Organization [facility] Address [address] [place] [address] Care Team Providers Care Sign Manufacturer Name Role Phone Hardeep Agarwal NP Primary Care Provide r Brenda Gutierrez MD Primary Care Provider [phone] Jalil Patrick Primary Care Provider [phone] Encounter Details Date Type Department Care Team (Late st Contact Info) Description 10/29/2023 Crucell Message Enc [facility] Family & Internal Medicine [address] [address] [facility] reschedule appointment Social History Tobacco Use [...] Description 11/11/2024 4:00 PM CDT Office Visit [facility] Family & Internal Medicine [address] [address] [place] [address] [place] [address] documented as of this encounter Visit Diagnoses Not on filedocumented in this encounter Care Teams Sign Manufacturer Relationship Specialty Start Date End Date Hardeep Agarwal NP PCP - General NURSE PRACTITIONER ADULT HEALTH 04/22/23 11/02/23 [place] [address] [address] PCP - General INTERNAL MEDICINE 11/03/23 11/10/23 [place] [address] [place] [address] PCP - General Physician Park Aide Medical 11/11/23 documented as of this encounter
[2024-11-05 13:08] VITALS: BP 131/75; PULSE 80; RESP 16; TEMP 36.2; O2SAT 98
--- OUTSIDE RECORDS SUMMARY | 2024-11-05 13:40 | XMS_ITS | Encounter Summary ---
Author Organization [facility] Address [address] [place] [address] Care Team Providers Care Friend Of The Court Name Role Phone Hardeep Agarwal NP Primary Care Provide r Brenda Gutierrez MD Primary Care Provider [phone] Jalil Patrick Primary Care Provider [phone] Encounter Details Date Type Department Care Team (Late st Contact Info) Description 06/11/2023 OkCopayt Message Enc [facility] Medical Group Family & Internal Medicine [address] [address] Hardeep Agarwal, JUSTIN [address] [facility] [place] [address] Meds Social History Tobacco Use [...] 06/11/2023 10:55 AM CST Ok for refills? STRATE documented in this encounter Plan of Treatment Upcoming Encounters Date Type Department Care Team (Late st Contact Info) Description 11/11/2024 4:00 PM CDT Office Visit [facility] Medical Group Family & Internal Medicine [facility] [address] [place] [address] [place] [address] [place] [address] documented as of this encounter Visit Diagnoses Not on filedocumented in this encounter Care Teams Friend Of The Court Relationship Specialty Start Date End Date Hardeep Agarwal NP PCP - General NURSE PRACTITIONER ADULT HEALTH 04/22/23 11/02/23 [place] [address] [phone] PCP - General INTERNAL MEDICINE 11/03/23 11/10/23 [place] [address] [place] [address] PCP - General Physician Estate Planning Paralegal Medical 11/11/23 documented as of this encounter
--- OUTSIDE RECORDS SUMMARY | 2024-11-05 13:40 | XMS_ITS | Encounter Summary ---
Author Organization [facility] Address [address] [place] [address] Care Team Providers Care Tobacco Blender Name Role Phone Hardeep Agarwal NP Primary Care Provide r Brenda Gutierrez MD Primary Care Provider [phone] Jalil Patrick Primary Care Provider Encounter Details Date Type Department Care Team (Late st Contact Info) Description 10/22/2023 [employer] Message Enc [facility] Medical Group Family & Internal Medicine [address] [address] Hardeep Agarwal, JUSTIN [address] [place] [address] Meds Social History Tobacco Use Types [...] Description 11/11/2024 4:00 PM CDT Office Visit [facility] Medical Group Family & Internal Medicine [facility] [address] [place] [address] [place] [address] [place] [address] documented as of this encounter Visit Diagnoses Not on filedocumented in this encounter Care Teams Tobacco Blender Relationship Specialty Start Date End Date Hardeep Agarwal NP PCP - General NURSE PRACTITIONER ADULT HEALTH 04/22/23 11/02/23 [place] [address] [phone] PCP - General INTERNAL MEDICINE 11/03/23 11/10/23 [place] [address] [place] [address] PCP - General Physician Quarter Supervisor Medical 11/11/23 documented as of this encounter
--- OUTSIDE RECORDS SUMMARY | 2024-11-05 13:40 | XMS_ITS | Clinical Summary ---
Author Organization [facility] Address [address] [place] [address] Care Team Providers Care Real Estate Office Manager Name Role Phone Jalil Patrick Primary Care Provider [phone] Allergies Active Allergy Reactions Criticality Noted Date [...] without complication, unspecified gastrointestinal tract location (CMS/HCC [facility]) Take 3 tablets (150 mg total) by [...] 05/01/2023 Ulcerative colitis without complications (CMS/HC C [facility]) 05/01/2023 Encounters Date Type Department Care Team Description 08/21/2024 Scan [facility] INFO SRVCS Scanned, Doc Med Group 08/15/2024 Results Follow-Up [facility] Family & Internal Medicine [facility] [address] [place] [address] Jalil Patrick PA XR FOOT RT 3V 08/12/2024 4:33 PM CDT - 08/12/2024 11:59 PM CDT Hospital Encounter [facility] [id number] [place] [address] Jalil Patrick PA Discharge Disposition: Home or Self Care (Routine Discharge) 08/12/2024 4:00 PM CDT Office Visit [facility] Family & Internal [facility] [address] [place] [address] Jalil Patrick PA Follow Up (3 mo [...] Description 11/11/2024 4:00 PM CDT Office Visit [facility] Medical Group Family & Internal Medicine - [place] [address] [place] [address] [place] [address] [place] [address] Health Maintenance Due Date Last [...] 07/14/2020 Hepatitis C Completed 10/19/2020 PHQ-2 (Physician Iota) Completed 05/16/2024 Meningococcal B Vaccine Aged Out [...] 7:37 AM Narrative 08/13/2024 7:38 AM CDT [address] [place] [address] Examination: X-ray RIGHT foot 3 views Exam time: 08/12/2024 Clinical history: HEEL PAIN X OVER A YEAR Comparison: None Technique: AP, oblique and lateral views of the RIGHT foot were obtained. Findings: No evidence of fracture, dislocation or gross bone destruction. No erosive arthritic change. Plantar calcaneal enthesophyte. Mild hallux valgus. Procedure Note Lanre Beltre MD - 08/13/[address] [place] [address] Examination: X-ray RIGHT foot 3 views Exam [...] Scanned SCANNING Edited Res ult - Final [facility] ONBASE from Last 3 Months or Most Recently Relevant to Health Maintenance Insurance [facility] Care Teams Real Estate Office Manager Relationship Specialty [place] [address] [place] [address] PCP - General Physician Document Reviewer Medical 11/11/23
--- OUTSIDE RECORDS SUMMARY | 2024-11-05 13:40 | XMS_ITS | Encounter Summary ---
Author Organization [facility] Address [address] [place] [address] Care Team Providers Care Spare Hand Name Role Phone Hardeep Agarwal NP Primary Care Provide r Brenda Gutierrez MD Primary Care Provider [phone] Jalil Patrick Primary Care Provider Encounter Details Date Type Department Care Team (Late st Contact Info) Description 09/04/2023 MyChart Message Enc [facility] Medical Group Family & Internal Medicine [address] [address] Hardeep Agarwal, JUSTIN [address] [facility] [place] [address] Xray right knee Social History [...] Description 11/11/2024 4:00 PM CDT Office Visit [facility] Medical Group Family & Internal Medicine - [place] [address] [place] [address] [place] [address] [place] [address] documented as of this encounter Visit Diagnoses Not on filedocumented in this encounter Care Teams Spare Hand Relationship Specialty Start Date End Date Hardeep Agarwal NP PCP - General NURSE PRACTITIONER ADULT HEALTH 04/22/23 11/02/23 [place] [address] [phone] PCP - General INTERNAL MEDICINE 11/03/23 11/10/23 [place] [address] [place] [address] PCP - General Physician Superintendent Recreation Medical 11/11/23 documented as of this encounter
--- OUTSIDE RECORDS SUMMARY | 2024-11-05 13:40 | XMS_ITS | Encounter Summary ---
Author Organization [facility] Address [address] [place] [address] Care Team Providers Care Corrective Therapy Aide Teacher Name Role Phone Hardeep Agarwal NP Primary Care Provide r Brenda Gutierrez MD Primary Care Provider [phone] Jalil Patrick Primary Care Provider [phone] Encounter Details Date Type Department Care Team (Late st Contact Info) Description 10/29/2023 [employer] Message Enc [facility] Family & Internal Medicine [address] [address] [facility] Provider reschedule appointment Social History Tobacco Use [...] Description 11/11/2024 4:00 PM CDT Office Visit [facility] Family & Internal Medicine [address] [address] [place] [address] [place] [address] documented as of this encounter Visit Diagnoses Not on filedocumented in this encounter Care Teams Corrective Therapy Aide Teacher Relationship Specialty Start Date End Date Hardeep Agarwal NP PCP - General NURSE PRACTITIONER ADULT HEALTH 04/22/23 11/02/23 [place] [address] [address] PCP - General INTERNAL MEDICINE 11/03/23 11/10/23 [place] [address] [place] [address] PCP - General Physician Can Machine Operator Medical 11/11/23 documented as of this encounter
[2024-11-05] MEDS: HYDROcodone/acetaminophen (*CRX) 10-325 MG TABLET 1 TAB PO (13:44)
[2024-11-05] MEDS: TETANUS,DIPHTHERIA,AC PERTUSSIS ADULT (0.5 ML) BOOSTRIX IM (13:45)
[2024-11-05] MEDS: ONDANSETRON HCL ODT 4 MG TABLET PO (13:45)
--- NOTE | 2024-11-05 13:45 | ED_ITS ---
HPI - Wound/Laceration General Chief Complaint: Wound/Laceration Stated Complaint: leg pain Time Seen by Provider: 11/05/24 13:16 Source: patient, RN notes reviewed and old records reviewed Mode of arrival: ambulatory Limitations: no limitations History of Present Illness HPI narrative: This is a 54 year old male with history of Ulcerative Colitis now in remission who presents for evaluation of left bonilla wound. He states that he was working on a deck when his left fell through rotted wood. He reports there was large wood splinter in his left leg that his neighbor removed. He is not sure if all the wound was removed. He has pain to left leg with dorsiflexion of his foot. He is unsure of his last tetanus. He takes hydrocodone 10 mg at home PRN but he has not taken any today. Related Data Home Medications ?Medication ?Instructions ?Recorded ?Confirmed ?Last Taken ?Type azathioprine 50 mg tablet mg 08/31/23 Unknown History oxycodone-acetaminophen 10 mg-325 tablet 08/31/23 Unknown History mg tablet Allergies Allergy/AdvReac Type Severity Reaction Status Date / Time morphine Allergy Severe CHEST PAIN Verified 11/05/24 13:42 AND BURNING SENSATION OF CHEST NSAIDS (Non-Steroidal AdvReac Other Verified 11/05/24 13:42 Anti-Inflamma PMFSH Past Medical History Medical History Ulcerative colitis Social History Social History (Updated 11/05/24 @ 13:49 by Dayna Marsh MD) Smoking status: Former smoker Exam Const: General: no acute distress and alert Nutritional Appearance: well nourished Orientation/consciousness: patient oriented x3 HENMT: Head: normal to inspection Eyes: EOM: EOMs intact bilaterally Resp: Effort & Inspection: normal respiratory effort Skin: Wounds: wounds noted (left bonilla with puncture wound with mild dark blood oozing) Neuro: General: patient oriented x3, moves all extremities and CN's II-XI intact bilaterally Extrem: Other: left bonilla wound, with surrounding developing ecchymosis. has full ROM to left foot but has pain with dorsiflexion Psych: Mental Status: mental status grossly normal Affect: normal affect Attitude: cooperative Course Reevaluation(s) Reevaluation #1: I discussed with patient that xray shows possible foreign bodies. I irrigated wound. He was given strict return precautions if signs of infection. He understands he will be started on antibiotics prophylactically given rotten wood caused pucture wounds. Date: 11/05/24 Time: 15:23 Vital Signs Vital signs: Vital Signs Temperature 97.2 F L 11/05/24 13:08 Pulse Rate 80 11/05/24 13:08 Respiratory Rate 16 11/05/24 13:08 Blood Pressure 131/75 11/05/24 13:08 Pulse Oximetry 98 11/05/24 13:08 Oxygen Delivery Room Air 11/05/24 13:08 Temperature 97.8 F 11/05/24 15:36 Pulse Rate 76 11/05/24 15:36 Respiratory Rate 16 11/05/24 15:36 Blood Pressure 138/80 11/05/24 15:36 Pulse Oximetry 100 11/05/24 15:36 Oxygen Delivery Room Air 11/05/24 13:08 MDM - Wound/Laceration MDM Narrative Medical decision making narrative: Patient presents with left bonilla wound. Will give tetanus immunization and give dose of his home dose of hydrocodone 10/325 mg . Will obtain xray and cleanse wound. Medical Records Attestation: I reviewed the patient's medical records. Imaging Data Radiologist's impression: ITS Impressions Tibia/Fibula X-Ray 11/05/24 14:39 IMPRESSION: Radiopaque foreign bodies within the anterior left lower leg, as detailed above. No acute fracture. Discharge Plan Discharge Clinical Impression: Puncture wound of left lower leg Qualifiers: Encounter type: initial encounter Qualified Code(s): S81.832A - Puncture wound without foreign body, left lower leg, initial encounter Patient Disposition: Home Condition: Stable Instructions: Antibiotic Form, Puncture Wound (ED) Additional Instructions: Please keep wound clean . Watch for signs of infection. If you develop fever, severe intractable pain pain , purulent drainage and redness return to ER. Take antibiotics to completion Patient Language: Indonesian Prescriptions: New amoxicillin-pot clavulanate 875-125 mg tablet 1 tablet PO Q12H Qty: 10 0RF No Action azathioprine 50 mg tablet oxycodone-acetaminophen 10-325 mg tablet ketorolac 0.5 % drops 1 drp RIGHT EYE Q6H PRN (Reason: pain) Qty: 3 0RF ofloxacin 0.3 % drops See Rx Instructions .ROUTE .COMPLEX Qty: 10 0RF Rx Instructions: put 2 drops into affected eye(s) every 2-4 h x 2 days, then 2 drops 4 times/day days 3-7 Follow-up/Referrals: Darnell,TEE Ortega [Primary Care Provider] -
[2024-11-05 15:36] VITALS: BP 138/80; PULSE 76; RESP 16; TEMP 36.6; O2SAT 100
== END 2024-11-05 15:38 | disposition home or self-care (01) ==
PROVIDERS: Emergency Provider General Practice; PCP Physician Assistant
DX: S81.842A Puncture wound with foreign body, left lower leg, initial encounter (principal); W13.8XXA Fall from, out of or through other building or structure, initial encounter; Z23 Encounter for immunization
CPT/HCPCS: 73590; 90471; 90715; 99283; A9270